=== PATIENT | male | born 1965 | race Caucasian/White ===

== ENCOUNTER → 2021-04-25 16:42 | Outpatient (CLI) | payer OTHER, SELFPAY ==
--- NOTE | ~2021-04-25 | MR_ITS ---
EXAMINATION: MR lumbar spine wo [facility] EXAM DATE: 04/25/2021 18:36 INDICATION: Low back pain, Lumbar radiculopathy. Left leg numbness. TECHNIQUE: Multi-sequential, multiplanar MR images of the lumbar spine were obtained without contrast . Sagittal T1, T2, T2 fat saturation images. Axial T2 weighted images. There is no prior study for comparison. FINDINGS: There are subacute appearing compression fractures at L3 and L4 centrally with mild loss of these vertebral body heights. Moderate to severe loss of the L3-4 disc height, moderate from T11 to L3 and mild to moderate at L4-5. There is 3 mm retrolisthesis L4 on L5 and L5 on S1. 2-3 mm retrolist hesis L2 on L3. The conus medullaris terminates at the L1/2 level and has normal signal intensity and morphology. Mild lumbar levoscoliosis. Level by level evaluation: T12-L1: There is a mild diffuse disc bulge. Facet arthropathy: None. Neural foraminal stenosis: No stenosis. Central canal stenosis: No stenosis. L1-L2: There is a moderate diffuse disc bulge. Facet arthropathy: Mild to moderate. Neural foraminal stenosis: Mild to moderate left, mild right. Central canal stenosis: Mild. L2-L3: There is a moderate diffuse disc bulge. Facet arthropathy: Mild to moderate. Neural foraminal stenosis: Mild to moderate bilateral. Central canal stenosis: Mild. L3-L4: There is a large diffuse disc bulge. Facet arthropathy: Moderate. Neural foraminal stenosis: Moderate to severe right, moderate left. Central canal stenosis: Moderate (large amount of posterior epidural fat with no CSF space surroundin g traversing nerve roots). L4-L5: There is a large diffuse disc bulge. Facet arthropathy: Moderate. Neural foraminal stenosis: Moderate bilateral, right greater than left. Central canal stenosis: Moderate. L5-S1: There is a moderate to large diffuse disc bulge asymmetric to the left Facet arthropathy: Moderate to severe left, moderate right. Neural foraminal stenosis: Moderate to severe left, moderate right. Central canal stenosis: Mild. IMPRESSION: 1. Subacute mild compression fractures L3 and L4, central canal most narrowed at this level with ner ve root crowding, no CSF space surrounding them. 2. Left L5-S1 neural foramina most narrowed on exam. Reviewed, dictated and finalized at location A. IMPRESSION: 1. Subacute mild compression fractures L3 and L4, central canal most narrowed at this level with nerve root crowding, no CSF space surrounding them. 2. Left L5-S1 neural foramina most narrowed on exam.
== END ==
PROVIDERS: Visit Provider Nurse Practitioner Family
DX: M54.50 Low back pain, unspecified (principal); M48.56XA Collapsed vertebra, not elsewhere classified, lumbar region, initial encounter for fracture
CPT/HCPCS: 72148